=== PATIENT | female | born 1980 | race Asian ===

== ENCOUNTER 2017-04-05 21:42 | Observation (INO) | payer OTHER ==
--- NOTE | 2017-04-05 22:18 | EDPHY ---
H & P Stated Complaint: sx today- back swelling began @1800 Time Seen by Provider: 04/05/17 22:01 HPI/ROS: HPI The patient presents with upper back pain and swelling which has been progressive since it started at about 6:00 p.m. tonight. She is postop day 0 from a lipoma excision in the area by Dr. Zuniga. She was discharged at about 4:00 p.m. and noticed the progressive pain and swelling of the postoperative area. The pain is localized, does not radiate. She does not have any fevers or chills.. REVIEW OF SYSTEMS Constitutional: No fever, no chills. Skin: No rashes. PMHx: Status post lipoma excision earlier today, had asthma PHYSICAL General Appearance: Alert, no distress Respiratory: Breathing comfortably Neurological: A&O, moves all extremities Skin: Warm and dry, no rashes Musculoskeletal: Upper left back with surgical incision with Steri-Strips in place with dried blood on Steri-Strips, 10 x 10cm area of edema, tenderness, no overlying skin changes Extremities: symmetrical Psychiatric: Patient is oriented X 3, there is no agitation Source: Patient Exam Limitations: No limitations - Personal History LMP (Females 10-55): 22-28 Days Ago Current Tetanus/Diphtheria Vaccine: Yes Tetanus Vaccine Date: 2016 - Medical/Surgical History Hx Asthma: Yes Hx Chronic Respiratory Disease: No Hx Diabetes: No Hx Cardiac Disease: No Hx Renal Disease: No Hx Cirrhosis: No Hx Alcoholism: No Hx HIV/AIDS: No Hx Splenectomy or Spleen Trauma: No Other PMH: ashtma, - Social History Smoking Status: Never smoked Constitutional: Initial Vital Signs Temperature (C) 37.2 C 04/05/17 21:43 Heart Rate 103 H 04/05/17 21:43 Respiratory Rate 18 04/05/17 21:43 Blood Pressure 134/100 H 04/05/17 21:43 O2 Sat (%) 97 04/05/17 21:43 O2 Delivery Mode Room Air Allergies/Adverse Reactions: No Known Allergies Allergy (Unverified 04/05/17 21:46) Home Medications: Medication Instructions Recorded Albuterol 04/05/17 Medical Decision Making Procedures: Bedside skin and soft tissue Ultrasound of the back- performed and interpreted by me. Indication: Edema postoperatively Findings: There is a 10 x 10 cm area at 1.5 cm below the skin surface to a maximum depth of 3 cm which is hypoechoic, with no loculations, there is no cobblestoning, there is no vascularity visualized Impression: Superficial fluid collection Differential Diagnosis: This is a 36-year-old female, postoperative day 0 from lipoma excision on her upper back by Dr. Zuniga, who presents with increased pain and edema at the surgical site. On exam, she is afebrile, well-appearing, she does have a large area of edema surrounding the surgical site. Differential diagnosis includes hematoma, vascular injury, abscess, seroma. In the emergency department, I consulted with Dr. Reaves on-call for Dr. Zuniga. He recommends admission verses discharge home and return tomorrow for drainage in the operating room. I talked with the patient and she would like to be admitted to the hospital. I have ordered a hospital bed for her. I have circled the area of edema on her back. I have ordered basic labs for her. Departure - Departure Disposition: [facility] In[facility] Acute Clinical Impression: Hematoma complicating a procedure Condition: Good
[2017-04-05] MEDS ORDERED: ceFAZolin 2 GM/DEXTROSE 100 ML IV ONE (22:49)
[2017-04-05] MEDS ORDERED: ONDANSETRON 4 MG/2 ML VIAL IVP PRN (22:53)
[2017-04-05] MEDS ORDERED: LORazepam 2 MG/ML INJ IVP PRN (22:55)
[2017-04-05] MEDS ORDERED: LR 1,000 ML IV SCH (23:00)
--- NOTE | 2017-04-05 23:01 | PDGENHP ---
History and Physical History and Physical: 36 y/o female s/p excision of back lipoma by Dr. Zuniga earlier today. She was seen by Dr. Mackey in the ED and found to have a 10 x 10 cm hematoma that will require operative drainage. She will be admitted for IV fluids, lab studies and comfort measures prior to drainage in the OR in the morning. Gina Reaves MD, FACS 06:40 physical exam S- resting comfortably-did not require narcotics for pain control O- BP 98/70 P 80 R12 T36.6 Pleasant young woman in NAD/sleeping HEENT: no scleral icterus Lungs: clear without wheezing CVS: RRR back: upper mid back incision 4 cm transverse with 10 x 10 cm area of swelling, soft/compressible-tender minor allergic reaction to adhesive/steri-strips neuro: awake and alert/appropriate interaction Imp: post op hematoma Rec: we discussed options including evacuation and drainage in the OR with sedation vs. observation She is currently NPO and we are waiting for OR availability. She is undecided as to how she would like to proceed. Gina Reaves MD, FACS
[2017-04-05 23:26] LABS: % IMMATURE GRANULYOCYTES 0.4 % (0.0-1.1); ABSOLUTE IMMATURE GRANULOCYTES 0.04 10^3/uL (0.00-0.10); ADD DIFF? NO; ADD MORPH? NO; ADD SCAN? NO; ATYPICAL LYMPHOCYTE FLAG 40 (0-99); FRAGMENT RBC FLAG 0 (0-99); HEMATOCRIT 40.8 % (38.0-47.0); LEFT SHIFT FLG 0 (0-99); LIPEMIA HEMOLYSIS FLAG 90 (0-99); MEAN CELL HEMOGLOBIN 30.7 pg (27.9-34.1); MEAN CELL HEMOGLOBIN CONCENTR. 34.3 g/dL (32.4-36.7); MEAN CELL VOLUME 89.5 fL (81.5-99.8); MEAN PLATELET VOLUME 10.6 fL (8.7-11.7); PLATELET CLUMPS FLAG 0 (0-99); PLATELET COUNT 287 10^3/uL (150-400); RED BLOOD CELL COUNT 4.56 10^6/uL (4.18-5.33); RED CELL DISTRIBUTION WIDTH 12.7 % (11.5-15.2)
[2017-04-05 23:36] LABS: INR 0.99 (0.83-1.16)
[2017-04-05 23:37] LABS: APTT 29.2 SEC (23.0-38.0)
[2017-04-06] MEDS: HYDROmorphONE/DILAUDID 1 MG/ML INJ IVP PRN ×2 (08:51→22:57)
--- NOTE | 2017-04-06 10:45 | ASMTCASEMG ---
Living Arrangements What is your living Answers: Alone arrangement? Who do you live with? Type Of Residence What kind of residence do Answers: Apartment you live in? Discharge Plan Comments Coordination Status Comments Notes: Pt is a 36 y/o female admitted w/ hematoma postop. Pt will have an operative drain today in the OR. No therapies ordered at this time. Pt will most likely go independent when medically stable. CM available for changes. Date Signed: 04/06/2017 10:44 AM Electronically Signed By:MARIAMA Robison
[2017-04-06] MEDS ORDERED: BUPIVACAINE 0.5% 30 ML SDV ONE (13:37)
[2017-04-06] MEDS ORDERED: MIDAZOLAM 2 MG/2 ML VIAL IVP ONE (13:40)
--- NOTE | 2017-04-06 13:40 | PDANEPAE ---
ANE History of Present Illness here for excision and drainage back hematoma s/p lipoma removal yesterday ANE Past Medical History - Cardiovascular History Hx Hypertension: No Hx Arrhythmias: No Hx Chest Pain: No Hx Coronary Artery / Peripheral Vascular Disease: No Hx CHF / Valvular Disease: No Hx Palpitations: No - Pulmonary History Hx COPD: No Hx Asthma/Reactive Airway Disease: No Hx Recent Upper Respiratory Infection: No Hx Oxygen in Use at Home: No Hx Sleep Apnea: No Sleep Apnea Screening Result - Last Documented: Negative - Endocrine History Hx Diabetes: No Hypothyroid: No Hyperthyroid: No Obesity: no - Renal History Hx Renal Disorders: No - Liver History Hx Hepatic Disorders: No - Neurological & Psychiatric Hx Hx Neurological and Psychiatric Disorders: No - Chronic Pain History Chronic Pain: No - Surgical History Prior Surgeries: lipoma excision ANE Review of Systems Review of systems is: negative Review of Systems: - Exercise capacity Exercise capacity: <4 METS ANE Patient History - Allergies Allergies/Adverse Reactions: No Known Allergies Allergy (Unverified 04/05/17 21:46) - Home Medications Home medications: home medication list seen and reviewed Home Medications: Albuterol [Proventil Inhaler HFA (*)] 1 - 2 puffs IH DAILY PRN 04/05/17 [Last Taken 1 Week Ago ~03/30/17] Naproxen Sodium [Aleve 220 MG (*)] 220 mg PO DAILY PRN 04/06/17 [Last Taken 04/12] - NPO status NPO Status: no food or drink >8 hours NPO Since - Liquids (Date): 04/05/17 NPO Since - Liquids (Time): 18:00 NPO Since - Solids (Date): 04/05/17 NPO Since - Solids (Time): 18:00 - Anes Hx Anes Hx: no prior problems - Smoking Hx Smoking Status: Never smoked ANE Labs/Vital Signs - Labs Result Diagrams: 04/05/17 23:17 - Vital Signs Blood Pressure: 92/60 Heart Rate: 65 Respiratory Rate: 16 O2 Sat (%): 98 Height: 165.1 cm Weight: 63.503 kg ANE Physical Exam - Airway Neck exam: FROM Mallampati Score: Class 1 Mouth exam: normal dental/mouth exam - Pulmonary Pulmonary: no respiratory distress - Cardiovascular Cardiovascular: regular rate and rhythym - ASA Status ASA Status: I ANE Anesthesia Plan Anesthesia Plan: general endotracheal anesthesia
[2017-04-06] MEDS ORDERED: CEFAZOLIN 2 GM/DEXTROSE/100 ML BAG IV ONE (13:45)
[2017-04-06] MEDS ORDERED: PROPOFOL/EMULSION 500 MG/50 ML BOTTLE IV ONE (13:49)
[2017-04-06] MEDS ORDERED: fentaNYL 100 MCG/2 ML INJ ONE ×2 (13:53→14:28)
[2017-04-06] MEDS ORDERED: PHENYLEPHRINE HCL 100 MCG/ML SYR ONE (14:06)
[2017-04-06] MEDS ORDERED: HYDROCODONE/APAP 5/325 TAB PO PRN ×2 (14:53→15:55)
[2017-04-06] MEDS ORDERED: ONDANSETRON DISINTEGRATING 4 MG TAB PO PRN (14:53)
--- NOTE | 2017-04-06 14:53 | POSTOPPROG ---
Post Op Note Date of Operation: 04/06/17 Surgeon: Artemio Reaves (, FACS) Anesthesiologist: Roberto Joya MD Anesthesia: LMA Pre-op Diagnosis: post op hematoma, back Post-op Diagnosis: same Procedure: evacuation of hematoma and control of bleeding Findings: 150 ml coagulated hematoma/subcutaneous bleeder Inf/Abcess present in the surg proc area at time of surgery?: No EBL: Minimal
[2017-04-06] MEDS ORDERED: ALBUTEROL 3 ML DEYVIAL ONE ×2 (15:48→16:21)
[2017-04-06] MEDS ORDERED: ONDANSETRON 4 MG/2 ML VIAL IVP PRN (15:55)
[2017-04-06] MEDS ORDERED: ALBUTEROL 3 ML DEYVIAL IH PRN ×2 (15:55→16:25)
[2017-04-06] MEDS ORDERED: NALOXONE HCL 0.4 MG/ML INJ IVP PRN (15:55)
[2017-04-06] MEDS ORDERED: LR 500 ML IV PRN (15:55)
[2017-04-06] MEDS ORDERED: fentaNYL 100 MCG/2 ML INJ IVP PRN (15:55)
[2017-04-06] MEDS ORDERED: ALBUTEROL 200 PUFFS/18 GM MDI IH PRN (17:46)
--- NOTE | 2017-04-06 21:07 | SOAPPROG ---
Downtime Inpatient MD Late Entry SOAP Note: Rylee is resting comfortably and sitting up in bed. I removed the dressing and there is no apparent swelling or drainage. I recommended she continue ice and rest. I anticipate discharge in the morning. Gina Reaves MD, FACS
[2017-04-06 23:24] VITALS: RESP 16
--- NOTE | 2017-04-07 02:05 | GOP ---
[f rep st] OPERATIVE REPORT DATE OF OPERATION: 04/06/2017 SURGEON: Artemio Reaves MD ANESTHESIA: General by laryngeal mask, Roberto Joya MD PREOPERATIVE DIAGNOSIS: 1. Status post excision of lipoma 04/05/2017 (Dr. Qasim Zuniga). 2. Postoperative hematoma. POSTOPERATIVE DIAGNOSIS: 1. Status post excision of lipoma 04/05/2017 (Dr. Qasim Zuniga). 2. Postoperative hematoma. PROCEDURE PERFORMED: Evacuation of hematoma and control of bleeding. FINDINGS: Approximately 150 mL hematoma within an approximately 4 cm long transverse incision in the left upper paraspinous region, extending down to the muscle. Active bleeding from subcutaneous blee ding along the superior edge of the incision. No evidence of infection. DESCRIPTION OF PROCEDURE: After informed consent was obtained, the patient was brought to the operat ing room and placed under general anesthesia via LMA. She was carefully positioned in right lateral decubitus position, carefully padding all pressure points, and an axillary roll was placed, as well a s a johnson bag. Before proceeding, a timeout and identification of the patient was performed. The old Steri-Strips were removed. The back was prepped and draped with chlorhexidine. After an appropriat e delay to allow the chlorhexidine to dry, the surgical field was draped. The wound was incised and old sutures were removed. The. There was a coagulum within the cavity of the wound that measured approximately 150 mL of blood, and this was evacuated with suction. This sti rred up some active bleeding along the upper edge of the deep subcutaneous tissues of the incision, a nd this was secured with cautery. The wound was then irrigated of the remaining coagulum. Cautery w as used liberally along the edges of the wound for the remaining areas of minor bleeding. There was no active bleeding upon completion of the procedure. The wound was infiltrated with 0.5% Marcaine pl ain. Subcutaneous tissues were approximated with 3-0 Monocryl suture. Skin was closed with 4-0 [place] cryl suture in a subcuticular fashion, followed by Dermabond. Sterile dressings were applied. Patient was returned extubated to the recovery room in satisfactory condition. Needle, sponge, and i nstrument count correct. Estimated blood loss was minimal plus 150 mL of clot. COMPLICATIONS: None. /[id number]/MODL
--- NOTE | 2017-04-07 06:34 | PDDCSUM ---
Discharge Summary Discharge Summary: DOA 04/05/17 DOD 04/07/17 DC Dx: post op hematoma Procedures: 04/06/17 evacuation of hematoma Course: Rylee was admitted for a post op hematoma. She was kept NPO and brought to the OR for evacuation of hematoma. Post op she remained stable and comfortable. She was DC'd home 04/07 and will follow up with Dr. Zuniga and myself in the next few weeks. I did not leave a drain in place and she could form a seroma in the cavity and we discussed this Condition at discharge: improved Meds: [place] #20 S MD Jean Paul, FACS
[2017-04-07 07:32] VITALS: BP 93/55; PULSE 83; TEMP 98.7; O2SAT 97
--- NOTE | 2017-04-07 12:02 | POSTANESTH ---
Post Anesthetic Evaluation Cardiovascular Status: Normal, Stable Respiratory Status: Normal, Stable Level of Consciousness/Mental Status: Can Participate in Eval Pain Control: Adequate, Prn Tx Ordered Nausea/Vomiting Control: Adequate, Prn Tx Ordered Complications Possibly Related to Anesthesia: None Noted
--- NOTE | 2017-04-07 15:41 | ASDISCHSUM ---
Discharge Information Plan Status:Home with No Needs Medically Cleared to Leave: Discharge Date:04/07/2017 09:50 AM CM D/C Disposition:Home, Routine, Self-Care ADT D/C Disposition:Home, Routine, Self-Care Projected Discharge Date:04/07/2017 09:50 AM Transportation at D/C: Discharge Delay Reason: Follow-Up Date:04/07/2017 09:50 AM Discharge Slot: Final Diagnosis: Placement Information Patient Contact Information Contact Name:LINNEA Relationship:Mother Address: Home Phone: City: [facility] Phone: State/Zip Code: Email: Financial Information Financial Class:Sh[facility] Primary Plan Desc:SHANDRA ACOSTAO HMO OPEN ACC LOCAL Primary Plan Number:[id number] Secondary Plan Desc: Secondary Plan Number: Assessment Information [facility] Initial CM Assessment Living Arrangements What is your living Answers: Alone arrangement? Who do you live with? Type Of Residence What kind of residence do Answers: Apartment you live in? Discharge Plan Comments Coordination Status Comments Notes: Pt is a 36 y/o female admitted w/ hematoma postop. Pt will have an operative drain today in the OR. No therapies ordered at this time. Pt will most likely go independent when medically stable. CM available for changes. Date Signed: 04/06/2017 10:44 AM Electronically Signed By:MARIAMA Robison Intervention Information
== END 2017-04-07 09:50 | disposition home or self-care (01) ==
LOC: F3E 23:59
PROVIDERS: ADMIT Surgery; ATTEND Surgery
PROC: 0W3K0ZZ Control Bleeding in Upper Back, Open Approach (ICD-10-PCS; principal; 2017-04-05)
PROC: 0H96XZZ Drainage of Back Skin, External Approach (ICD-10-PCS; principal; 2017-04-05)
DX: L76.22 Postprocedural hemorrhage of skin and subcutaneous tissue following other procedure (principal); J45.909 Unspecified asthma, uncomplicated; Z98.890 Other specified postprocedural states
CPT/HCPCS: 10140; 99285; G0378; J0690; J1170; J2250; J2370; J2704; J3010